=== PATIENT | male | born 1925 | race Caucasian/White ===

== ENCOUNTER 2017-01-15 15:57 | Observation (INO) | payer BC ==
[2017-01-12 13:36] LABS: BASOPHILS 0.4 %; BASOPHILS ABSOLUTE 0.04 10/3/uL (0.0-0.16); EOSINOPHILS 1.4 %; EOSINOPHILS ABSOLUTE 0.16 10/3/uL (0.0-0.53); HEMATOCRIT 37.6 % (40.0-51.0); HEMOGLOBIN 12.4 g/dL (13.6-17.8); IMMATURE GRANULOCYTES 0.9 %; LYMPHOCYTES 10.4 %; LYMPHOCYTES ABSOLUTE 1.16 10/3/uL (0.67-4.30); MEAN PLATELET VOLUME 10.4 fL (9.2-13.0); MONOCYTES 8.2 %; MONOCYTES ABSOLUTE 0.91 10/3/uL (0.21-1.20); NEUTROPHILS 78.7 %; NEUTROPHILS ABSOLUTE 8.77 10/3/uL (2.02-8.40); PLATELET COUNT 260 10/3/uL (150-400); WHITE BLOOD CELLS 11.1 10/3/uL (4.5-10.5)
[2017-01-12 13:37] LABS: MANUAL DIFF NO %
[2017-01-12 13:42] LABS: INTERNATIONAL NORMAL RATI 1.1 UNITS (-); PROTIME (NOT ORD) 14.4 SEC (12.0-14.5)
[2017-01-12 13:43] LABS: PARTIAL THROMBO TIME 26.8 SEC (22.5-37.2)
[2017-01-12 13:50] LABS: CALCIUM, SERUM 9.6 MG/DL (8.5-10.4); CHLORIDE, SERUM 105 MMOL/L (96-112); CO2 (CARBON DIOXIDE) 27 MMOL/L (24-34); CREATININE 1.14 MG/DL (0.70-1.30); GFR AFRICAN AMERICAN 66 ML/MIN (>=60); GFR NON AFRICAN AMERICAN 57 ML/MIN (>=60); POTASSIUM, SERUM 4.4 MMOL/L (3.5-5.3); SODIUM, SERUM 140 MMOL/L (135-148)
[2017-01-12 13:51] LABS: BUN (BLOOD UREA NITROGEN) 21 MG/DL (6-23); GLUCOSE, SERUM 101 MG/DL (60-99)
--- NOTE | ~2017-01-15 | OP ---
Record Of Operation [facility] [address] [place]. [address] NAME: KENYA WOODS : [birth year] STATUS : ADM IN PAT#: [id number] AGE: 89 ADM/REG DATE : 01/15/17 MR#: [id number] REPORT SERV DATE: 01/15/17 DICTATED BY: GERALDINE POLLARD JR. DATE: 01/15/17 REPORT STATUS : Draft TRANSCRIBED BY: EDWIN DATE: 01/15/17 DATE OF PROCEDURE: SURGEON: Geraldine Pollard M.D. LABORATORY MACHINIST: PROCEDURES: Repair of right inguinal hernia, incarcerated. PREOPERATIVE DIAGNOSIS: Incarcerated right inguinal hernia. POSTOPERATIVE DIAGNOSIS: Incarcerated right inguinal hernia. ANESTHESIA: Local with general. INDICATIONS: This patient has presented with a growing right inguinal hernia. This is symptomatic, is unable be reduced clinically, and repair was indicated. FINDINGS: On exploration of the area, there was a large inguinal hernia which is a direct hernia. There is extensive disruption of the overlying fascia and the external oblique is attenuated to the point of not being recognizable in the area. This does contain intraabdominal contents. Once this was freed up, it was able to be reduced. There was quite mobility of the testicle and cord. In view of the patient's age and the need for a satisfactory closure, like to proceed with orchiectomy to facilitate the repair of the hernia. DESCRIPTION OF PROCEDURE: With adequate general anesthesia, the patient was placed in supine position. The abdomen was prepped and draped sterilely. A mixture of 1% lidocaine and 0.5% Marcaine was used for local infiltration of anesthesia. The curvilinear incision was made within the right lower quadrant area. Incision deepened down through the subcutaneous tissues. The sac was identified initially which was dissected free of surrounding tissues down to the underlying inguinal ligament inferiorly and some residual transverse medially. This was opened, and the underlying cord structures were dissected free. The hernia sac was excised. There was no indirect sac per se. It is noted that testicle was quite mobile, and it was elected to proceed with orchiectomy, this was dissected free of the scrotum with sharp dissection, and the cord structures were clamped and divided at the internal ring securing bleeders with ligatures of Vicryl. Then, a Parietex ProGrip was utilized to repair the floor. This was secured medially to pubic tubercle and the inguinal ligament superiorly to the transversalis. This produced satisfactory closure of the defect. Then, the external oblique remnants were closed over this with interrupted [id number] Novafil and then the subcutaneous tissues were closed with Vicryl and skin with dermal Monocryl. Sterile dressings were applied. The patient left the operating room in satisfactory condition. ESTIMATED BLOOD LOSS: 30 mL. Record Of Operation [facility] [address] [place]. [address] NAME: KENYA WOODS : [birth year] STATUS : ADM IN PAT#: [id number] AGE: 89 ADM/REG DATE : 01/15/17 MR#: [id number] REPORT SERV DATE: 01/15/17 DICTATED BY: GERALDINE POLLARD JR. DATE: 01/15/17 REPORT STATUS : Draft TRANSCRIBED BY: EDWIN DATE: 01/15/17 MARU/EDWIN Geraldine Pollard Jr., M.D. / [id number] CC: Yessenia Choe Jr., MD
[~2017-01-15 15:57] MED LIST: ACET500CAP PO; ALTA5 PO; ARICEPT10 PO; ASAB PO; BIST PO; CLARIT10 PO; COREG12 PO; IMDUR120 PO; JANUMET XR 50-1 EACH PO; JANUMET1 TAB PO; LIPITOR40 PO; LOP50 PO; LUMIGAN2.5 ML OPH; MAGNESIUM PO; MULTIPLE VIT PO; NITROQUICK0.4 MG SL; PLAVIX PO; PRESERVISION A1 EACH PO; PRESERVISION PO; SPIRO25 PO; TRICOR145 PO; VITAMIN D3 PO; [UNRECOGNIZED DRUG - OTHER] PO; [UNRECOGNIZED DRUG - OTHER] PO
[2017-02-12] MEDS ORDERED: ZOLOFT25 MG PO (23:55)
[2017-02-12] MEDS ORDERED: CELEXA10 PO (23:56)
[2017-02-12] MEDS ORDERED: PLAVIX PO (23:56)
[2017-02-12] MEDS ORDERED: ARICEPT10 PO (23:56)
[2017-02-12] MEDS ORDERED: LIPITOR20 PO (23:57)
[2017-02-12] MEDS ORDERED: ULTRAM50 PO (23:57)
[2017-02-12] MEDS ORDERED: CALTRA600D PO (23:58)
[2017-02-12] MEDS ORDERED: TRICOR145 PO (23:58)
[2017-02-12] MEDS ORDERED: VITAMIN D31000 UNIT PO (23:58)
[2017-02-12] MEDS ORDERED: MAGNESIUM GLUCONATE PO (23:58)
[2017-02-12] MEDS ORDERED: DSS PO (23:59)
[2017-02-12] MEDS ORDERED: PRESERVISION A1 EAC1 PO (23:59)
[2017-02-12] MEDS ORDERED: POTASSIUM GLUCONATE PO (23:59)
[2017-02-12] MEDS ORDERED: ACET500CAP PO (23:59)
[2017-02-13] MEDS ORDERED: JANUMET PO (00:03)
[2017-02-13] MEDS ORDERED: HALF81 PO (00:03)
[2017-02-13] MEDS ORDERED: MULTIVIT/MIN PO (00:03)
[2017-02-13] MEDS ORDERED: ALTA5 PO (00:04)
[2017-02-13] MEDS ORDERED: LUMIGAN2.5 ML OPH (00:05)
[2017-02-16] MEDS ORDERED: SEROQUEL50 MG PO (11:34)
== END 2017-01-16 11:32 | disposition home or self-care (01) ==
LOC: SDC 15:57 → 5SO 15:58
PROVIDERS: Specialist
PROC: 0YQ50ZZ Repair Right Inguinal Region, Open Approach (ICD-10-PCS; principal; 2017-01-15 10:00)
DX: K40.30 Unilateral inguinal hernia, with obstruction, without gangrene, not specified as recurrent (principal); I10 Essential (primary) hypertension; I25.10 Atherosclerotic heart disease of native coronary artery without angina pectoris; E11.9 Type 2 diabetes mellitus without complications; I25.2 Old myocardial infarction; Z87.891 Personal history of nicotine dependence; Z79.02 Long term (current) use of antithrombotics/antiplatelets; Z88.2 Allergy status to sulfonamides; Z88.5 Allergy status to narcotic agent; Z88.0 Allergy status to penicillin; Z79.899 Other long term (current) drug therapy; Z98.890 Other specified postprocedural states; Z23 Encounter for immunization
CPT/HCPCS: 36415; 71020; 80048; 82962; 85025; 85610; 85730; 86850; 86900; 86901; 88305; 90662; 93005; 96372; 96374; 96376; A9270-GY; C1781; G0008; G0378; J0690; J3010